=== PATIENT | female | born 1950 | race African-American/Black ===

== ENCOUNTER 2021-03-20 19:46 | Emergency (ER) | payer MEDICARE, OTHER ==
[~2021-03-20] VITALS: Ht 160 cm; Wt 93.0 kg
[2021-03-20 19:49] VITALS: BP 145/45
== END 2021-03-20 22:05 | disposition left against medical advice (07) ==
LOC: ER 19:51
DX: R10.31 Right lower quadrant pain (principal); R11.2 Nausea with vomiting, unspecified; Z53.21 Procedure and treatment not carried out due to patient leaving prior to being seen by health care provider

== ENCOUNTER 2021-03-20 22:09 | Emergency (ER) | payer MEDICARE, OTHER ==
[~2021-03-20] VITALS: Ht 160 cm; Wt 93.0 kg
[2021-03-20 22:10] VITALS: BP 148/84
== END 2021-03-20 23:06 | disposition left against medical advice (07) ==
LOC: EDBD 22:09 → ER 22:18
DX: R10.11 Right upper quadrant pain (principal); Z53.21 Procedure and treatment not carried out due to patient leaving prior to being seen by health care provider
CPT/HCPCS: 93005

== ENCOUNTER 2022-11-05 07:08 | Day surgery (SDC) | payer OTHER ==
[~2022-11-05] VITALS: Ht 160 cm; Wt 95.3 kg
[~2022-11-05 07:08] MED LIST: AMLO1TAB22 PO; ASPI-543 PO; CHLO25TA2 PO; ERGO1CAP23 PO; INSU1INJ19 SC; MECL1TAB32 PO; NAPR-957 PO; OLME40TA78 PO; ROSU20TA14 PO
[2022-11-05] MEDS ORDERED: IODIXANOL 320MG/ML 100ML BTL IV ONE (07:39)
[2022-11-05] MEDS ORDERED: LIDOCAINE 2%HCL (LOCAL ANESTH.) INJ 20ML MDV ONE (07:39)
[2022-11-05] MEDS ORDERED: ANGIOMAX 250 MG VIAL IV ONE (08:01)
[2022-11-05] MEDS ORDERED: VERAPAMIL 2.5MG/ML INJ 2ML VIAL IV ONE (08:01)
[2022-11-05] MEDS ORDERED: HEPARIN SODIUM (PORCINE) 5000 UNITS/ML 1ML VIAL ONE (08:01)
[2022-11-05] MEDS ORDERED: MIDAZOLAM HCL 2MG/2ML 2ml VIAL (1mg/ml) ONE (08:02)
[2022-11-05] MEDS ORDERED: fentaNYL CITRATE 100 MCG/2 ML VL ONE (08:02)
[2022-11-05] MEDS ORDERED: SODIUM CHL 0.9% 0 ML ONE (08:02)
[2022-11-05 08:40] VITALS: BP 133/58
[2022-11-05 09:10] VITALS: BP 133/58
[2022-11-05 10:10] VITALS: BP 140/90
[2022-11-05 10:45] VITALS: BP 140/90
== END 2022-11-05 11:10 | disposition home or self-care (01) ==
LOC: CATH 07:08
PROVIDERS: ATTEND Internal Medicine Cardiovascular Disease
DX: R94.39 Abnormal result of other cardiovascular function study (principal); I25.10 Atherosclerotic heart disease of native coronary artery without angina pectoris; I10 Essential (primary) hypertension; E11.40 Type 2 diabetes mellitus with diabetic neuropathy, unspecified; E66.9 Obesity, unspecified; E78.5 Hyperlipidemia, unspecified; Z86.73 Personal history of transient ischemic attack (TIA), and cerebral infarction without residual deficits; Z86.718 Personal history of other venous thrombosis and embolism; Z79.01 Long term (current) use of anticoagulants; Z79.899 Other long term (current) drug therapy; Z79.84 Long term (current) use of oral hypoglycemic drugs
CPT/HCPCS: 76937; 93458; C1725; C1894; J1644; J2250; J3010; Q9967; 99152

== ENCOUNTER 2023-01-15 15:49 | Emergency (ER) | payer OTHER, MEDICAID ==
[~2023-01-15] VITALS: Ht 160 cm; Wt 98.6 kg
[2023-01-15 15:57] VITALS: O2SAT 99
[2023-01-15 17:01] LABS: Basophils # (auto) 0.1 10 ^3/uL (0-0.2); Basophils % (auto) 1.1 % (0.0-2.0); Eosinophils # (auto) 0.2 10 ^3/uL (0-0.8); Eosinophils % (auto) 1.5 % (0.0-7.0); Hematocrit 26.1 % (36.0-46.0); Hemoglobin 8.7 g/dL (12.2-16.2); Lymphocytes # (auto) 1.9 10 ^3/uL (0.4-5.4); Lymphocytes % (auto) 15.3 % (10.0-50.0); Mean Corpuscular Hemoglobin 26.6 pg (28.0-32.0); Mean Corpuscular Hgb Conc. 33.3 g/dL (32.0-36.0); Mean Corpuscular Volume 79.9 fL (80.0-100.0); Monocytes % (auto) 7.6 % (0.0-12.0); Neutrophils # (auto) 9.4 10 ^3/uL (1.6-8.6); Neutrophils % (auto) 74.5 % (37.0-80.0); Red Blood Cells 3.27 10^6/uL (4.0-5.20); Red Cell Distribution Width 15.4 % (11.8-14.3); White Blood Cell 12.6 10^3/uL (4.4-10.8)
[2023-01-15 17:14] LABS: INR 1.09 (0.9-1.15); Prothrombin Time 11.4 sec (9.3-11.8)
[2023-01-15 17:34] LABS: Alanine Aminotransferase 12 U/L (7-40); Albumin 4.4 g/dL (3.2-4.8); Alkaline Phosphatase 94 U/L (46-116); Aspartate Aminotransferase 12 U/L (13-40); BUN/Creatinine Ratio 21.4 (10.0-20.0); Bilirubin, Total 0.4 mg/dL (0.2-1.0); Blood Urea Nitrogen 47 mg/dL (9-23); Calcium 9.5 mg/dL (8.5-10.1); Chloride 90 mmol/L (98-107); Glucose 124 mg/dL (74-106); Potassium 4.4 mmol/L (3.5-5.1); Sodium 123 mmol/L (136-145); Total Protein 7.6 g/dL (5.7-8.2)
[2023-01-15 17:47] LABS: Anion Gap 1.3 (5-15); Carbon Dioxide 31.7 mmol/L (20-30)
[2023-01-15 19:58] VITALS: BP 140/61; PULSE 66; RESP 16; TEMP 97.9
== END 2023-01-15 18:42 | disposition home or self-care (01) ==
LOC: ER 15:49
DX: R60.0 Localized edema (principal); I10 Essential (primary) hypertension; E11.9 Type 2 diabetes mellitus without complications; I25.10 Atherosclerotic heart disease of native coronary artery without angina pectoris; E78.5 Hyperlipidemia, unspecified; Z95.1 Presence of aortocoronary bypass graft; Z79.82 Long term (current) use of aspirin; Z79.4 Long term (current) use of insulin; Z79.899 Other long term (current) drug therapy; Z88.5 Allergy status to narcotic agent
CPT/HCPCS: 36415; 80053; 83880; 84484; 85025; 85610; 93005; 93971